=== PATIENT | female | born 1990 | race Two or more races ===

== ENCOUNTER 2020-03-03 13:45 | Outpatient (REF) | payer BC, SELFPAY ==
[2020-03-04 09:38] LABS: BV Int Neg Control Negative (Negative); BV Int Pos Control Positive (Positive)
[2020-03-07 21:52] LABS: HPV mRNA E6/E7 Not Detected (Not Detected)
== END 2020-03-03 13:46 | disposition home or self-care (01) ==
LOC: HO.LAB 13:45
PROVIDERS: Visit Provider Internal Medicine
DX: Z12.4 Encounter for screening for malignant neoplasm of cervix (principal); Z11.51 Encounter for screening for human papillomavirus (HPV)
CPT/HCPCS: 36415; 87480; 87491; 87510; 87591; 87624; 87625; 87660; 88141; 88142

== ENCOUNTER 2020-11-01 06:19 | Outpatient (REF) | payer BC, SELFPAY ==
[2020-11-01 08:38] LABS: MANUAL DIFF FLAG NO
[2020-11-01 08:51] LABS: Basophils Percent Auto 0.3 % (0-2); Eosinophils Absolute Auto 0.1 X10*3/uL (0.0-0.4); Eosinophils Percent Auto 2.3 % (0-4); Hematocrit 41.6 % (37-47); Hemoglobin 13.9 g/dl (12.0-16.0); Imm Gran Abs Auto 0.02 X10*3/uL (0.00-0.03); Imm Gran Pct Auto 0.3 % (0.0-0.4); Lymphocytes Absolute Auto 1.6 X10*3/uL (1.2-4.9); Lymphocytes Percent Auto 28.3 % (20-40); Mean Corpuscular HGB Conc 33.4 g/dl (31.0-35.0); Mean Corpuscular Volume 89.8 fL (80-98); Mean Platelet Volume 9.9 fL (9.4-12.3); Monocytes Absolute Auto 0.5 X10*3/uL (0.1-1.2); Monocytes Percent Auto 8.2 % (2-11); Neutrophils Absolute Auto 3.5 X10*3/uL (2.0-8.3); Neutrophils Percent Auto 60.6 % (45-73); Platelet Count 260 X10*3/uL (160-400); Red Blood Count 4.63 X10*6/uL (4.20-5.50); Red Cell Distribution Width 12.2 % (11.0-16.0); White Blood Count 5.8 X10*3/uL (4.8-10.8)
[2020-11-01 08:59] LABS: Alanine Aminotransferase 19 U/L (0-31); Albumin Level 4.6 g/dL (3.5-5.0); Alkaline Phosphatase 47 U/L (39-117); Anion Gap 14 (12-20); Aspartate Amino Transferase 20 U/L (5-31); Bilirubin Total 1.3 mg/dL (0.0-1.0); Blood Urea Nitrogen 15 mg/dL (9-16); Calcium 9.6 mg/dL (8.4-10.2); Carbon Dioxide 25 mmol/L (22-29); Chloride 106 mmol/L (96-108); Cholesterol 182 mg/dL; Estimated Glomerular Filt Rate > 60; Glucose Random 83 mg/dL (60-115); HDL Cholesterol 50 mg/dL; LDL Cholesterol Calculated 119 mg/dl; Sodium 140 mmol/L (135-145); Total Protein 7.5 g/dL (6.5-8.0); Triglycerides 69 mg/dL
[2020-11-01 09:26] LABS: Free T4 (Free Thyroxine) 0.94 ng/dL (0.71-1.85); Thyroid Stimulating Hormone 1.37 uIU/mL (0.32-4.0); Vitamin D 25-OH Total 24.3 ng/mL (>30)
[2020-11-01 09:34] LABS: Folate 11.3 ng/mL (> or = 4.0); Vitamin B12 854 pg/mL (200-900)
[2020-11-01 10:50] LABS: CT PCR NOT DETECTED (Not Detect.); NG PCR NOT DETECTED (Not Detect.)
== END 2020-11-01 06:20 | disposition home or self-care (01) ==
LOC: HO.LAB 06:19
PROVIDERS: PCP Internal Medicine; Visit Provider Internal Medicine
DX: Z12.4 Encounter for screening for malignant neoplasm of cervix (principal); Z11.3 Encounter for screening for infections with a predominantly sexual mode of transmission; E66.3 Overweight; G43.909 Migraine, unspecified, not intractable, without status migrainosus; E78.00 Pure hypercholesterolemia, unspecified
CPT/HCPCS: 80053; 80061; 82306; 82607; 82746; 84439; 84443; 85025; 87491; 87591

== ENCOUNTER 2023-01-23 10:01 | Outpatient (AMB) | payer BC, SELFPAY ==
[2023-01-23 10:14] VITALS: BP 118/60; PULSE 86; O2SAT 97; BMI 37.0
--- NOTE | 2023-01-23 10:14 | MHC.PC.OV ---
Vital Signs 01/23/23 10:14 Height 5 ft 5 in Weight 222 lb 4 oz BMI 37.0 BP 118/60 Blood Pressure Location Lt brachial Position Sitting Pulse 86 Pulse Source Pulse Oximeter Pulse Oximetry (%) 97 Oxygen Delivery Method Room Air Intake Visit Reasons: Asthma Heritage Consultant Required: No Accompanied by: Self / Same As Patient Allergies dog dander [DOGS] Allergy (Intermediate, Verified 01/23/23 10:15) SHORTNESS OF BREATH Medication List - Last Reconciled 01/23/23 by Filomena Hernandez MD albuterol sulfate 90 mcg/actuation 2 puffs PO Q4-6H PRN 30 days budesonide-formoterol 160-4.5 mcg/actuation (Symbicort) 2 puffs inhalation Q12H [nebulizer As directed] Tobacco use date assessed: 01/23/23 Dental Screening Dental Screen Date: 01/23/23 Did you have a dental visit in the last 12 months?: Yes Did you have a dental problem in the last 6 months where you did not have access to dental care?: No Was dental information given to patient?: Patient has dentist HPI Asthma HPI Details 32-year-old obese female with GERD and asthma last seen in June 2021 complaining of alopecia and blood work was requested. Patient is here for follow-up [facility] Medical History (Updated 04/07/21 @ 12:30 by Filomena Hernandez MD) Vaginal discharge Bacterial vaginosis Rectal discomfort Constipation Overweight (BMI 25.0-29.9) Migraine Allergic rhinitis Asthma Family History Mother Depression Sister Depression Social History Housing: Apartment Alcohol intake: current Patient Tobacco Use Status: Never used Tobacco e-Cigarette/Vaping Use: Currently Using Second Hand Smoke Exposure: No service: No Current occupational status: employed Cognitive needs: No Hearing needs: No Vision needs: No Questionnaire PHQ-9 Over the last 2 weeks, how often have you been bothered by any of the following problems? 1. Little interest or pleasure in doing things: not at all 2. Feeling down, depressed, or hopeless: not at all 3. Trouble falling or staying asleep, or sleeping too much: not at all 4. Feeling tired or having little energy: not at all 5. Poor appetite or overeating: not at all 6. Feeling bad about yourself - or that you are a failure or have let yourself or your family down: not at all 7. Trouble concentrating on things, such as reading the newspaper or watching television: not at all 8. Moving or speaking so slowly that other people could have noticed. Or the opposite - being so fidgety or restless that you have been moving around a lot more than usual: not at all 9. Thoughts that you would be better off or of hurting yourself in some way: not at all Total score: 0 41132 - PHQ-9 Billing: Yes Source: Developed by Drs. Scott Lakhani, Jesusita Smith, Pavel Randolph and colleagues, with an educational anat from [employer] Thrive Questionnaire Date Thrive assessed: 01/23/23 I am a: Patient What is your living situation today?: I have a steady place to live Within the past 12 months, did the food you bought not last and you didn't have the money to get more?: Never true Within the past 12 months, did you worry whether your food would run out before you got money to buy more?: Never true Do you have trouble paying for medicines?: No Do you have trouble getting transportation to medical appointments?: No Do you have trouble paying your heating and electricity bill?: No Do you have trouble taking care of your child, family member or friend?: No Do you have trouble with day-to-day activities such as bathing, preparing meals, shopping, managing finances, etc.?: No Are you currently unemployed and looking for a job?: No Are you interested in more education?: No Please select the resources that you would like help with: None Currently or been in a relationship where the following occur: no concerns reported AUDIT C Alcohol Use Questionnaire (AUDIT-C) 1. How often do you have a drink containing alcohol?: Monthly or less 2. How many drinks containing alcohol do you have on a typical day when you are drinking?: 3 or 4 3. How often do you have six or more drinks on one occasion?: Never Total Score: 2 TIP-7 AMB Questionnaire TIP-7 Date TIP - 7 assessed: 12/13/23 Feeling nervous, anxious, or on edge: 0 = Not at all Not being able to stop or control worryin = Not at all Worrying too much about different things: 0 = Not at all Trouble relaxin = Not at all Being so restless that it is hard to sit still: 0 = Not at all Becoming easily annoyed or irritable: 0 = Not at all Feeling afraid as if something awful might happen: 0 = Not at all Total TIP-7 score (0-4 normal; 5-9 mild; 10-14 moderate; 15-21 severe): 0 Source: Developed by Drs. Scott Lakhani, Jesusita Smith, Pavel Randolph and colleagues, with an educational anat from [employer]. TIP-7 Assessment Billing TIP-7 Assessment Tool: TIP-7 Assessment 81635 Physical exam (Primary Care) Vital Signs: Last Vital Signs Pulse 86 01/23/23 10:14 BP 118/60 01/23/23 10:14 Pulse Ox 97 01/23/23 10:14 Oxygen Delivery Method Room Air 01/23/23 10:14 BMI result Body Mass Index 37.0 Tobacco/Smoking Status: Tobacco use Status Tobacco use date assessed 01/23/23 01/23/23 10:21 Patient Tobacco Use Status Never used Tobacco 01/23/23 10:21 Tobacco use type 04/07/21 09:48 e-Cigarette/Vaping Use Currently Using 01/23/23 10:21 PHQ-9: PHQ-9 Score PHQ-9: Total score 0 01/23/23 10:48 Thrive Assessment: Date of Thrive Assessment Date Thrive assessed 01/23/23 01/23/23 10:21 Currently or been in a relationship where the following occur: no concerns reported Const General: alert; No acute distress Eyes Conjunctivae: conjunctivae normal Resp Auscultation: clear to auscultation bilaterally Cardio Rate: regular rate Rhythm: regular rhythm GI Inspection: Yes normal to inspection Extrem General: Yes normal to inspection and No edema Office Procedures Flu Questionnaire Does the patient have a severe egg allergy?: No Does the patient have severe life threatening allergies?: No Does the patient have a fever or illness today?: No Has the patient ever had Guillain-[place] Syndrome?: No Has the patient ever had any past reaction to a flu shot?: No Immunizations flu vacc [id number] 6mos up(PF) 60 mcg(15 mcgx4)/0.5 mL IM syringe Performing Provider: Filomena Hernandez MD [facility] Administered by: Jamee Fuentes CMA on 01/23/23 11:03 Dose Route Admin Location Dispensed Lot Number Expiration Date N[employer] Regulatory Leader 0.5 mL IM Left Deltoid 0.5 mL [id number] 08/11/23 48012-017-42 [employer] VIS Given Date VIS Provided VIS Publication Date 01/23/23 Single Vaccine 20 Eligibility Eligibility Date Funding Source Not [facility] Eligible 01/23/23 Private Assessment and Plan Assessment & Plan (1) Obesity (BMI 30-39.9): Code(s): E66.9 - Obesity, unspecified Plan: Diet and exercise (2) Asthma: Code(s): J45.909 - Unspecified asthma, uncomplicated Qualifiers: Asthma severity: mild Asthma persistence: intermittent Asthma complication type: uncomplicated Qualified Code(s): J45.20 - Mild intermittent asthma, uncomplicated Plan: Patient on rescue inhaler as well as controller inhaler. Orders: Orders Complete Blood Count Auto Diff Today L65.9 - Nonscarring hair loss, unspecified Comprehensive Met. Panel Today L65.9 - Nonscarring hair loss, unspecified Free T4 (Free Thyroxine) Today L65.9 - Nonscarring hair loss, unspecified Thyroid Stimulating Hormone Today L65.9 - Nonscarring hair loss, unspecified DHEA Sulfate Today L65.9 - Nonscarring hair loss, unspecified Vitamin B12 and Folate Today L65.9 - Nonscarring hair loss, unspecified Lipid Panel Today E78.00 - Pure hypercholesterolemia, unspecified, L65.9 - Nonscarring hair loss, unspecified Testosterone, Free/Total Today L65.9 - Nonscarring hair loss, unspecified Medications: Refilled budesonide-formoterol 160-4.5 mcg/actuation (Symbicort) 2 puffs inhalation Q12H 10.2 grams 11RF J45.20 - Mild intermittent asthma, uncomplicated albuterol sulfate 90 mcg/actuation 2 puffs PO Q4-6H 30 days PRN 8.5 grams 0RF for dyspnea J45.20 - Mild intermittent asthma, uncomplicated Coding Level of Care Code Est Pt Level 4 (64192) Diagnoses Obesity (BMI 30-39.9) E66.9 Mild intermittent asthma without complication J45.20 Asthma severity: mild Asthma persistence: intermittent Asthma complication type: uncomplicated Additional Codes TIP-7 Assessment Billing - TIP-7 Assessment Tool: TIP-7 Assessment [id number] ([id number])
== END 2023-01-23 11:07 | disposition home or self-care (01) ==
PROVIDERS: PCP Internal Medicine; Visit Provider Internal Medicine
DX: Z23 Encounter for immunization (principal); J45.20 Mild intermittent asthma, uncomplicated; E66.9 Obesity, unspecified; Z68.37 Body mass index [BMI] 37.0-37.9, adult
CPT/HCPCS: 90471; 90686; 99214

== ENCOUNTER 2023-06-04 11:36 | Outpatient (AMB) | payer BC, SELFPAY ==
--- NOTE | 2023-06-04 11:37 | A.OFFPC_ITS ---
Vital Signs 06/04/23 11:38 Height 5 ft 5 in Weight 101.151 kg BMI 37.1 BP 132/68 Blood Pressure Location Lt brachial Position Sitting Pulse 80 Pulse Source Pulse Oximeter Pulse Oximetry (%) 98 Oxygen Delivery Method Room Air Intake Visit Reasons: pe Allergies dog dander [DOGS] Allergy (Intermediate, Verified 06/04/23 11:38) SHORTNESS OF BREATH Medication List - Last Reconciled 06/04/23 by Filomena Hernandez MD albuterol sulfate 90 mcg/actuation 2 puffs PO Q4-6H PRN 30 days budesonide-formoterol 160-4.5 mcg/actuation (Symbicort) 2 puffs inhalation Q12H [nebulizer As directed] Tobacco use date assessed: 06/04/23 Dental Screening Dental Screen Date: 06/04/23 Did you have a dental visit in the last 12 months?: Yes Did you have a dental problem in the last 6 months where you did not have access to dental care?: No Was dental information given to patient?: Patient has dentist HPI pe HPI Details 32-year-old obese female with a history of asthma coming in for physical exam. Last seen in January 2023. tired a lot, sleepy in the afternoon, sleepy on watching tv, sleepy after a meal, feels yeast infection PFSH Medical History (Updated 06/04/23 @ 11:54 by Filomena Hernandez MD) Vaginal discharge Bacterial vaginosis Rectal discomfort Constipation Overweight (BMI 25.0-29.9) Migraine Allergic rhinitis Asthma Family History (Updated 06/04/23 @ 11:39 by Jamee Fuentes CMA) Mother Depression Sister Depression Other Mental health disorder Social History (Updated 06/04/23 @ 11:50 by Filomena Hernandez MD) Housing: Apartment Alcohol intake: current Comment: 2x a month 4 drinks at one time Patient Tobacco Use Status: Never used Tobacco e-Cigarette/Vaping Use: Currently Using Second Hand Smoke Exposure: No service: No Current occupational status: employed Cognitive needs: No Hearing needs: No Vision needs: No Questionnaire PHQ-9 Over the last 2 weeks, how often have you been bothered by any of the following problems? 1. Little interest or pleasure in doing things: not at all 2. Feeling down, depressed, or hopeless: not at all 3. Trouble falling or staying asleep, or sleeping too much: not at all 4. Feeling tired or having little energy: not at all 5. Poor appetite or overeating: not at all 6. Feeling bad about yourself - or that you are a failure or have let yourself or your family down: not at all 7. Trouble concentrating on things, such as reading the newspaper or watching television: not at all 8. Moving or speaking so slowly that other people could have noticed. Or the opposite - being so fidgety or restless that you have been moving around a lot more than usual: not at all 9. Thoughts that you would be better off or of hurting yourself in some way: not at all Total score: 0 Depression Screening Interpretation: Negative Depression Screening Done: Yes 75057 - PHQ-9 Billing: Yes Source: Developed by Drs. Scott Lakhani, Jesusita Smith, Pavel Randolph and colleagues, with an educational anat from [employer]. Thrive Questionnaire Date Thrive assessed: 06/04/23 I am a: Patient What is your living situation today?: I have a steady place to live Within the past 12 months, did the food you bought not last and you didn't have the money to get more?: Never true Within the past 12 months, did you worry whether your food would run out before you got money to buy more?: Never true Do you have trouble paying for medicines?: No Do you have trouble getting transportation to medical appointments?: No Do you have trouble paying your heating and electricity bill?: No Do you have trouble taking care of your child, family member or friend?: No Do you have trouble with day-to-day activities such as bathing, preparing meals, shopping, managing finances, etc.?: No Are you currently unemployed and looking for a job?: No Are you interested in more education?: No Please select the resources that you would like help with: None Currently or been in a relationship where the following occur: no concerns reported THRIVE Score: 0 AUDIT C Alcohol Use Questionnaire (AUDIT-C) 1. How often do you have a drink containing alcohol?: Monthly or less 2. How many drinks containing alcohol do you have on a typical day when you are drinking?: 3 or 4 3. How often do you have six or more drinks on one occasion?: Never Total Score: 2 TIP-7 AMB Questionnaire TIP-7 Date TIP - 7 assessed: 06/04/23 Feeling nervous, anxious, or on edge: 0 = Not at all Not being able to stop or control worryin = Not at all Worrying too much about different things: 0 = Not at all Trouble relaxin = Not at all Being so restless that it is hard to sit still: 0 = Not at all Becoming easily annoyed or irritable: 0 = Not at all Feeling afraid as if something awful might happen: 0 = Not at all Total TIP-7 score (0-4 normal; 5-9 mild; 10-14 moderate; 15-21 severe): 0 Source: Developed by Drs. Scott Lakhani, Jesusita Smith, Pavel Randolph and colleagues, with an educational anat from [employer]. TIP-7 Assessment Billing TIP-7 Assessment Tool: TIP-7 Assessment 84248 Review of Systems Const Denies poor appetite and Denies weakness Eyes Denies no additional complaints ENT Reports Normal hearing present, Denies dizziness, Denies nasal congestion, Denies tinnitus and Denies sore throat Card Denies chest pain, Denies syncope, Denies rapid heart rate and Denies dyspnea Resp Denies cough and Denies dyspnea GI Denies change in stool character, Reports constipation, Denies diarrhea, Denies nausea and Denies vomiting Denies urinary frequency, Denies difficulty voiding and Denies dysuria Neuro Reports Normal hearing present, Denies confusion, Denies dizziness, Denies syncope and Denies weakness Psych Denies confusion Physical exam (Primary Care) Vital Signs: Last Vital Signs Pulse 80 06/04/23 11:38 BP 132/68 06/04/23 11:38 Pulse Ox 98 06/04/23 11:38 Oxygen Delivery Method Room Air 06/04/23 11:38 BMI result Body Mass Index 37.1 Tobacco/Smoking Status: Tobacco use Status Tobacco use date assessed 06/04/23 06/04/23 11:42 Patient Tobacco Use Status Never used Tobacco 06/04/23 11:50 Tobacco use type 04/07/21 09:48 e-Cigarette/Vaping Use Currently Using 06/04/23 11:50 PHQ-9: PHQ-9 Score PHQ-9: Total score 0 06/04/23 11:42 Depression Screening Interpretation: Negative Thrive Assessment: Date of Thrive Assessment Date Thrive assessed 06/04/23 06/04/23 11:42 Currently or been in a relationship where the following occur: no concerns reported Const General: No confusion Orientation/consciousness: No confusion HENMT Head: Yes normocephalic Ears: external ears normal and TM's normal bilaterally Face and sinus: Yes normal facial exam Mouth: moist mucous membranes Throat: Yes tonsils normal Eyes Conjunctivae: conjunctivae normal Pupils: Equal, round and reactive pupils present and Pupil accommodation reflex normal Direct Ophthalmoscopy: normal light reflex Neck Neck: No lymphadenopathy Thyroid: Thyroid normal Chest Chest palpation & inspection: normal inspection of the chest Resp Effort & Inspection: normal respiratory effort and no audible wheezes Auscultation: clear to auscultation bilaterally, no crackles, no wheezes and lung sounds not diminished Cardio Rate: regular rate Rhythm: regular rhythm Peripheral pulses: radial pulses present and dorsalis pedis present GI Palpation (GI): no masses Auscultation: normal bowel sounds and normoactive bowel sounds Rectal Exam - Female: deferred Skin General skin exam: no rashes or lesions noted Rashes: no rashes Neuro General: No confusion Cranial nerves: Yes Equal, round and reactive pupils present and Yes Normal hearing present Cognition (Neuro): normal cognition Gait exam (Neuro): Normal gait present Motor exam (neuro): 5/5 motor strength present throughout Deep tendon reflexes (DTR's): Right brachioradialis reflex intensity grade: 2+, Left brachioradialis reflex intensity grade: 2+, Right patellar reflex intensity grade: 2+ and Left patellar reflex intensity grade: 2+ Extrem General: No edema Immunizations tetanus-diphtheria toxoids-Td 2 Lf unit-2 Lf unit/0.5 mL IM suspension Performing Provider: Filomena Hernandez MD Performing Location: [facility] [place] [facility] Administered by: Jamee Fuentes CMA on 06/04/23 12:05 Dose Route Admin Location Dispensed Lot Number Expiration Date N[employer] Advertising Account Representative 0.5 mL IM Left Deltoid 0.5 mL [id number] 03/23/24 [address]-3 [employer] VIS Given Date VIS Provided VIS Publication Date 06/04/23 Single Vaccine 20 Eligibility Eligibility Date Funding Source Not [facility] Eligible 06/04/23 State funds Assessment and Plan Assessment & Plan (1) Annual physical exam: Code(s): Z00.00 - Encounter for general adult medical examination without abnormal findings (2) Asthma: Code(s): J45.909 - Unspecified asthma, uncomplicated Qualifiers: Asthma complication type: uncomplicated Asthma persistence: intermittent Asthma severity: mild Qualified Code(s): J45.20 - Mild intermittent asthma, uncomplicated Plan: Continue with the albuterol and controller Symbicort. (3) Obesity (BMI 30-39.9): Code(s): E66.9 - Obesity, unspecified Plan: Diet and exercise (4) Hearing difficulty: Code(s): H91.90 - Unspecified hearing loss, unspecified ear (5) Hypersomnia: Code(s): G47.10 - Hypersomnia, unspecified (6) Yeast infection of the vagina: Code(s): B37.31 - Acute candidiasis of vulva and vagina Orders: Orders Td State Immunization Today Z23 - Encounter for immunization RT home sleep study Today G47.10 - Hypersomnia, unspecified Vitamin D 25-OH Total Today E55.9 - Vitamin D deficiency, unspecified Referrals Speech and Hearing Referral H91.90 - Unspecified hearing loss, unspecified ear Medications: New fluconazole 150 mg PO ONCE 1 day 1 tab 0RF B37.31 - Acute candidiasis of vulva and vagina tetanus-diphtheria toxoids-Td 0.5 mL IM ONCE 0.5 mL 0RF Z23 - Encounter for immunization montelukast (Singulair) 10 mg PO BEDTIME 30 tabs 3RF J45.20 - Mild intermittent asthma, uncomplicated Refilled albuterol sulfate 90 mcg/actuation 2 puffs PO Q4-6H 30 days PRN 8.5 grams 0RF for dyspnea J45.20 - Mild intermittent asthma, uncomplicated budesonide-formoterol 160-4.5 mcg/actuation (Symbicort) 2 puffs inhalation Q12H 10.2 grams 11RF J45.20 - Mild intermittent asthma, uncomplicated Coding Level of Care Code Est Pt Prev Care 18-39y(57083) Diagnoses Annual physical exam Z00.00 Mild intermittent asthma without complication J45.20 Asthma complication type: uncomplicated Asthma persistence: intermittent Asthma severity: mild Obesity (BMI 30-39.9) E66.9 Hearing difficulty H91.90 Hypersomnia G47.10 Yeast infection of the vagina B37.31 Additional Codes TIP-7 Assessment Billing - TIP-7 Assessment Tool: TIP-7 Assessment 08708 ([id number])
[2023-06-04 11:38] VITALS: BP 132/68; PULSE 80; O2SAT 98; BMI 37.1
== END 2023-06-04 12:12 | disposition home or self-care (01) ==
PROVIDERS: PCP Internal Medicine; Visit Provider Internal Medicine
DX: Z00.00 Encounter for general adult medical examination without abnormal findings (principal); E66.9 Obesity, unspecified; Z68.37 Body mass index [BMI] 37.0-37.9, adult; Z23 Encounter for immunization; J45.20 Mild intermittent asthma, uncomplicated; H91.90 Unspecified hearing loss, unspecified ear; G47.10 Hypersomnia, unspecified; B37.31 Acute candidiasis of vulva and vagina
CPT/HCPCS: 90471; 90714; 99395

== ENCOUNTER 2023-10-17 15:54 | Outpatient (AMB) | payer BC, SELFPAY ==
[2023-10-17 15:55] VITALS: BP 132/72; PULSE 87; O2SAT 98; BMI 35.1
--- NOTE | 2023-10-17 15:55 | MHC.PC.OV ---
Vital Signs 10/17/23 15:55 Height 5 ft 5 in Weight 211 lb BMI 35.1 BP 132/72 Blood Pressure Location Lt brachial Position Sitting Pulse 87 Pulse Source Pulse Oximeter Pulse Oximetry (%) 98 Oxygen Delivery Method Room Air Intake Visit Reasons: asthma Network Security Consultant Required: No Accompanied by: Self / Same As Patient Allergies dog dander [DOGS] Allergy (Intermediate, Verified 10/17/23 15:56) SHORTNESS OF BREATH Tobacco use date assessed: 06/04/23 Dental Screening Dental Screen Date: 06/04/23 HPI asthma HPI Details 32-year-old obese female(noted 12 lb weight loss) with asthma coming in for follow-up. Last seen in May for physical exam. noted vaginal discharge few weeks ago and noted foul smell, prompting consult patient has been using the albuterol inhaler as needed and is under control with the Symbicort. Has not use the Singulair but would want to take them and would want to have refills. Patient also noted hair loss and has seen the dermatology in 2021 and asking for minoxidil prescription. [facility] Medical History (Updated 10/17/23 @ 16:23 by Filomena Hernandez MD) Vaginal discharge Bacterial vaginosis Rectal discomfort Constipation Overweight (BMI 25.0-29.9) Migraine Allergic rhinitis Asthma Family History (Updated 06/04/23 @ 11:39 by Jamee Fuentes CMA) Mother Depression Sister Depression Other Mental health disorder Social History (Updated 06/04/23 @ 11:50 by Filomena Hernandez MD) Housing: Apartment Alcohol intake: current Comment: 2x a month 4 drinks at one time Patient Tobacco Use Status: Never used Tobacco Tobacco use type: Cigarette e-Cigarette/Vaping Use: Currently Using Second Hand Smoke Exposure: No service: No Current occupational status: employed Cognitive needs: No Hearing needs: No Vision needs: No Questionnaire PHQ-9 Over the last 2 weeks, how often have you been bothered by any of the following problems? 1. Little interest or pleasure in doing things: not at all 2. Feeling down, depressed, or hopeless: not at all 3. Trouble falling or staying asleep, or sleeping too much: not at all 4. Feeling tired or having little energy: not at all 5. Poor appetite or overeating: not at all 6. Feeling bad about yourself - or that you are a failure or have let yourself or your family down: not at all 7. Trouble concentrating on things, such as reading the newspaper or watching television: not at all 8. Moving or speaking so slowly that other people could have noticed. Or the opposite - being so fidgety or restless that you have been moving around a lot more than usual: not at all 9. Thoughts that you would be better off or of hurting yourself in some way: not at all Total score: 0 Depression Screening Interpretation: Negative Depression Screening Done: Yes 79701 - PHQ-9 Billing: Yes Source: Developed by Drs. Scott Lakhani, Jesusita Smith, Pavel Randolph and colleagues, with an educational anat from [employer]. Thrive Questionnaire Date Thrive assessed: 06/04/23 AUDIT C Alcohol Use Questionnaire (AUDIT-C) 1. How often do you have a drink containing alcohol?: Monthly or less 2. How many drinks containing alcohol do you have on a typical day when you are drinking?: 3 or 4 3. How often do you have six or more drinks on one occasion?: Never Total Score: 2 TIP-7 AMB Questionnaire TIP-7 Date TIP - 7 assessed: 06/04/23 Source: Developed by Drs. Scott Lakhani, Jesusita Smith, Pavel Randolph and colleagues, with an educational anat from [employer]. Physical exam (Primary Care) Vital Signs: Last Vital Signs Pulse 87 10/17/23 15:55 BP 132/72 10/17/23 15:55 Pulse Ox 98 10/17/23 15:55 Oxygen Delivery Method Room Air 10/17/23 15:55 BMI result Body Mass Index 35.1 Tobacco/Smoking Status: Tobacco use Status Tobacco use date assessed 06/04/23 10/17/23 16:00 Patient Tobacco Use Status Never used Tobacco 10/17/23 16:00 Tobacco use type Cigarette 10/17/23 16:00 e-Cigarette/Vaping Use Currently Using 10/17/23 16:00 PHQ-9: PHQ-9 Score PHQ-9: Total score 0 10/17/23 16:00 Depression Screening Interpretation: Negative Thrive Assessment: Date of Thrive Assessment Date Thrive assessed 06/04/23 10/17/23 16:00 Const General: alert; No acute distress Eyes Conjunctivae: conjunctivae normal Resp Auscultation: clear to auscultation bilaterally Cardio Rate: regular rate Rhythm: regular rhythm GI Inspection: Yes normal to inspection Extrem General: Yes normal to inspection and No edema Assessment and Plan Assessment & Plan (1) Obesity (BMI 30-39.9): Code(s): E66.9 - Obesity, unspecified Plan: Continue with Diet and exercise (2) GERD (gastroesophageal reflux disease): Code(s): K21.9 - Gastro-esophageal reflux disease without esophagitis Plan: Avoid the foods that causes that usually spicy foods, tomato products, juices, coffee, soda and foods that your sensitive to. After eating do not lie down, allow 3-4 hours before in lie down. And keep the head of bed above 30 degrees to avoid the acid from going up. (3) Asthma: Code(s): J45.909 - Unspecified asthma, uncomplicated Qualifiers: Asthma severity: mild Asthma persistence: intermittent Asthma complication type: uncomplicated Qualified Code(s): J45.20 - Mild intermittent asthma, uncomplicated Plan: Continue with albuterol, Symbicort and montelukast. Reminded about rinsing mouth after using the Symbicort. (4) Foul smelling vaginal discharge: Code(s): N89.8 - Other specified noninflammatory disorders of vagina Plan: discussed about treatment and testing advised (5) Alopecia: Code(s): L65.9 - Nonscarring hair loss, unspecified Plan: minoxidil sent Orders: Orders CT NG by PCR Today N89.8 - Other specified noninflammatory disorders of vagina Bacterial Vaginosis Panel Today N89.8 - Other specified noninflammatory disorders of vagina Medications: New metronidazole 500 mg PO BID 14 tabs 0RF N89.8 - Other specified noninflammatory disorders of vagina minoxidil 2% 1 mL topical BID 60 mL 0RF L65.9 - Nonscarring hair loss, unspecified Coding Level of Care Code Est Pt Level 4 (77945) Diagnoses Obesity (BMI 30-39.9) E66.9 GERD (gastroesophageal reflux disease) K21.9 Mild intermittent asthma without complication J45.20 Asthma severity: mild Asthma persistence: intermittent Asthma complication type: uncomplicated Foul smelling vaginal discharge N89.8 Alopecia L65.9
== END 2023-10-17 16:32 | disposition home or self-care (01) ==
PROVIDERS: PCP Internal Medicine; Visit Provider Internal Medicine
DX: J45.20 Mild intermittent asthma, uncomplicated (principal); E66.9 Obesity, unspecified; Z68.35 Body mass index [BMI] 35.0-35.9, adult; K21.9 Gastro-esophageal reflux disease without esophagitis; N89.8 Other specified noninflammatory disorders of vagina; L65.9 Nonscarring hair loss, unspecified
CPT/HCPCS: 99214

== ENCOUNTER 2024-03-02 08:43 | Outpatient (AMB) | payer BC, SELFPAY ==
--- NOTE | 2024-03-02 08:49 | A.OFFPC_ITS ---
Vital Signs 03/02/24 08:51 Height 5 ft 5 in Weight 200 lb 6 oz BMI 33.3 BP 110/58 L Blood Pressure Location Lt brachial Position Sitting Pulse 87 Pulse Source Pulse Oximeter Temp 97.8 F Temp Source Skin Pulse Oximetry (%) 98 Oxygen Delivery Method Room Air Intake Visit Reasons: lump on LT breast Intake Note: Patient is here to follow up on lump on left breast and sore feeling. Marine Propulsion Technician Required: No Development Technical Lead: Not Required per policy Accompanied by: Self / Same As Patient Allergies dog dander [DOGS] Allergy (Intermediate, Verified 03/02/24 09:12) SHORTNESS OF BREATH Medication List - Last Reconciled 03/02/24 by Brandi Rushing PA-C albuterol sulfate 90 mcg/actuation 2 puffs PO Q4-6H PRN 90 days budesonide-formoterol 160-4.5 mcg/actuation (Symbicort) 2 puffs inhalation Q12H minoxidil 2% 1 mL topical BID montelukast (Singulair) 10 mg PO BEDTIME [nebulizer As directed] Tobacco use date assessed: 03/02/24 Dental Screening Dental Screen Date: 03/02/24 Did you have a dental visit in the last 12 months?: Yes Did you have a dental problem in the last 6 months where you did not have access to dental care?: No Was dental information given to patient?: Patient has dentist [facility] Medical History Vaginal discharge Bacterial vaginosis Rectal discomfort Constipation Overweight (BMI 25.0-29.9) Migraine Allergic rhinitis Asthma Surgical History No pertinent past surgical history Family History Mother Depression Sister Depression Other Mental health disorder Social History Housing: Apartment Alcohol intake: current Alcohol intake frequency: does not drink Comment: 2x a month 4 drinks at one time Patient Tobacco Use Status: Never used Tobacco Tobacco use type: Cigarette e-Cigarette/Vaping Use: Currently Using Frequency of e-Cigarette/Vaping Use: Daily Second Hand Smoke Exposure: No service: No Current occupational status: employed Cognitive needs: No Hearing needs: No Vision needs: No Questionnaire PHQ-9 Over the last 2 weeks, how often have you been bothered by any of the following problems? 1. Little interest or pleasure in doing things: not at all 2. Feeling down, depressed, or hopeless: not at all 3. Trouble falling or staying asleep, or sleeping too much: not at all 4. Feeling tired or having little energy: not at all 5. Poor appetite or overeating: not at all 6. Feeling bad about yourself - or that you are a failure or have let yourself or your family down: not at all 7. Trouble concentrating on things, such as reading the newspaper or watching television: not at all 8. Moving or speaking so slowly that other people could have noticed. Or the opposite - being so fidgety or restless that you have been moving around a lot more than usual: not at all 9. Thoughts that you would be better off or of hurting yourself in some way: not at all Total score: 0 Depression Screening Interpretation: Negative Depression Screening Done: Yes Source: Developed by Drs. Scott Lakhani, Jesusita Smith, Pavel Randolph and colleagues, with an educational anat from [employer]. Thrive Questionnaire Date Thrive assessed: 03/02/24 I am a: Patient What is your living situation today?: I have a steady place to live Within the past 12 months, did the food you bought not last and you didn't have the money to get more?: Never true Within the past 12 months, did you worry whether your food would run out before you got money to buy more?: Never true Do you have trouble paying for medicines?: No Do you have trouble getting transportation to medical appointments?: No Do you have trouble paying your heating and electricity bill?: No Do you have trouble taking care of your child, family member or friend?: No Do you have trouble with day-to-day activities such as bathing, preparing meals, shopping, managing finances, etc.?: No Are you currently unemployed and looking for a job?: No Are you interested in more education?: No Please select the resources that you would like help with: None Currently or been in a relationship where the following occur: No concerns reported THRIVE Score: 0 AUDIT C Alcohol Use Questionnaire (AUDIT-C) 1. How often do you have a drink containing alcohol?: Monthly or less 2. How many drinks containing alcohol do you have on a typical day when you are drinking?: 3 or 4 3. How often do you have six or more drinks on one occasion?: Never Total Score: 2 TIP-7 AMB Questionnaire TIP-7 Date TIP - 7 assessed: 03/02/24 Feeling nervous, anxious, or on edge: 0 = Not at all Not being able to stop or control worryin = Not at all Worrying too much about different things: 0 = Not at all Trouble relaxin = Not at all Being so restless that it is hard to sit still: 0 = Not at all Becoming easily annoyed or irritable: 0 = Not at all Feeling afraid as if something awful might happen: 0 = Not at all Total TIP-7 score (0-4 normal; 5-9 mild; 10-14 moderate; 15-21 severe): 0 Source: Developed by Drs. Scott Lakhani, Jesusita Smith, Pavel Randolph and colleagues, with an educational anat from [employer]. Physical exam (Primary Care) Vital Signs: Last Vital Signs Temp 97.8 F 03/02/24 08:51 Pulse 87 03/02/24 08:51 BP 110/58 L 03/02/24 08:51 Pulse Ox 98 03/02/24 08:51 Oxygen Delivery Method Room Air 03/02/24 08:51 BMI result Body Mass Index 33.3 Tobacco/Smoking Status: Tobacco use Status Tobacco use date assessed 03/02/24 03/02/24 08:56 Patient Tobacco Use Status Never used Tobacco 03/02/24 08:56 Tobacco use type Cigarette 03/02/24 08:56 e-Cigarette/Vaping Use Currently Using 03/02/24 08:56 PHQ-9: PHQ-9 Score PHQ-9: Total score 0 03/02/24 09:08 Depression Screening Interpretation: Negative Thrive Assessment: Date of Thrive Assessment Date Thrive assessed 03/02/24 03/02/24 08:56 Currently or been in a relationship where the following occur: No concerns reported Office Procedures Flu Questionnaire Does the patient have a severe egg allergy?: No Does the patient have severe life threatening allergies?: No Does the patient have a fever or illness today?: No Has the patient ever had Guillain-Meridian Syndrome?: No Has the patient ever had any past reaction to a flu shot?: No Immunizations Fluarix Triv 3330-4567 (PF) 45 mcg (15 mcg x 3)/0.5 mL IM syringe Performing Provider: Brandi Rushing PA-C [facility] Administered by: Shannon Fountain LPN on 03/02/24 09:08 Dose Route Admin Location Dispensed Lot Number Expiration Date [employer] Education Associate 0.5 mL IM Right Deltoid 0.5 mL [id number] 08/10/24 38350-129-44 [employer] VIS Given Date VIS Provided VIS Publication Date 03/02/24 Single Vaccine 20 Eligibility Eligibility Date Funding Source Not [facility] Eligible 03/02/24 Private Coding Level of Care Code Est Pt Level 4 (26338) Complex EM visit Add On G2211 Diagnoses Breast lump in female N63.0 Breast pain, left N64.4 Screening for HPV (human papillomavirus) Z11.51 Mild intermittent asthma without complication J45.20 Asthma severity: mild Asthma persistence: intermittent Asthma complication type: uncomplicated Influenza vaccine administered Z23 Assessment & Plan Assessment & Plan (1) Breast lump in female: Code(s): N63.0 - Unspecified lump in unspecified breast Category: Medical Plan: Sports lump to left breast at 09:00 o'clock. Benign exam. Will order ultrasound and mammogram. Will continue to monitor. (2) Breast pain, left: Code(s): N64.4 - Mastodynia Category: Medical Plan: See above. (3) Screening for HPV (human papillomavirus): Code(s): Z11.51 - Encounter for screening for human papillomavirus (HPV) Category: Medical Plan: Patient requesting female inside tester. Will refer to inside tester for further evaluation manag ement. Will continue to monitor. (4) Asthma: Code(s): J45.909 - Unspecified asthma, uncomplicated Category: Medical Qualifiers: Asthma severity: mild Asthma persistence: intermittent Asthma complication type: uncomplicated Qualified Code(s): J45.20 - Mild intermittent asthma, uncomplicated Plan: Condition is chronic and stable. Will refill meds. (5) Influenza vaccine administered: Code(s): Z23 - Encounter for immunization Category: Medical Plan: Patient received influenza vaccine. No prior allergies. Will continue to [facility]. Plan Plan - Order breast ultrasound to evaluate the left breast mass. - Schedule a screening mammogram for comprehensive breast evaluation. - Refill albuterol inhaler, nebulizer, and acne cream. - Arrange blood tests for the lipid panel due to be performed before the next appointment. - Discuss referral to a female EXECUTIVE CYBER LEADER. Orders: Orders Influenza [id number] Immunization Today Z23 - Encounter for immunization US breast LT limited Today N64.4 - Mastodynia MM screening mammo BI Today Z12.31 - Encounter for screening mammogram for malignant neoplasm of breast Referrals EXECUTIVE CYBER LEADER Referral N63.0 - Unspecified lump in unspecified breast, Z11.51 - Encounter for screening for human papillomavirus (HPV) Medications: Refilled montelukast (Singulair) 10 mg PO BEDTIME 30 tabs 3RF J45.20 - Mild intermittent asthma, uncomplicated [nebulizer] As directed 1 ea 0RF asthma J45.20 - Mild intermittent asthma, uncomplicated minoxidil 2% 1 mL topical BID 60 mL 0RF L65.9 - Nonscarring hair loss, unspecified albuterol sulfate 90 mcg/actuation 2 puffs PO Q4-6H PRN 8.5 grams 0RF for dyspnea 90 days J45.20 - Mild intermittent asthma, uncomplicated budesonide-formoterol 160-4.5 mcg/actuation (Symbicort) 2 puffs inhalation Q12H 10.2 grams 11RF J45.20 - Mild intermittent asthma, uncomplicated Patient Instructions: Patient Instructions - Schedule the ultrasound and mammogram as instructed urgently. - Ensure to fast before taking the lipid panel blood test. - Use asthma medications as prescribed; refills will be ready at the [facility] - Follow up with an EXECUTIVE CYBER LEADER appointment for the Pap smear, preference for a female provider noted. - Monitor the breast area and report any changes or increase in symptoms. Scribe Plan - Not visible on output: History of Present Illness The patient is a 33-year-old female presenting with a complaint of a palpable lump in the left breast. She reports that the lump has been noticeable for the past two to three weeks. The lump is described as being more pronounced on certain days and consistently associated with soreness, likened to muscle soreness experienced after exertion. There is no acute pain, just a constant soreness. The patient also reports the presence of a bruise on the left breast, which she attributes to frequent palpation of the lump. She has a family history where her mother and sister undergo regular monitoring for breast lumps, but there is no confirmed history of breast cancer. In her medical history, she is known to have asthma for which she uses an albuterol inhaler and a nebulizer. The last consultation for asthma was approximately two months ago. The patient also uses a cream for acne. There is a note of missed blood work scheduled for a lipid panel which was not completed as the patient had coffee with cream and sugar earlier. Social History - Familial health monitoring: Mother and sister have regular breast monitoring. - Medical management: Regular use of albuterol inhaler and nebulizer for asthma. - Preventative health care: Due for a Pap smear since last done in 2020. Review of Systems - Dermatological: Reports consistent soreness in the left breast area. Physical Exam Appearance: Alert. Oriented X3. No acute distress. Head: Normal external exam. Normocephalic. Atraumatic. Eyes: Pupils are equal, round, and reactive to light. Extraocular movements intact. Conjunctiva and sclera normal. Eyelids normal. Ears: External auditory canal normal. Throat: Pharynx normal. Uvula midline. Moist mucous membranes. Neck: Normal inspection. Neck supple. Full range of motion. No adenopathy. Breast: Ecchymosis noted to left breast at 09:00 o'clock. No obvious lumps or lesions noted. No inversion of the nipple. Normal size of nipple. Normal breast. No adenopathy noted. No rashes. No signs of infection. No erythema, soft tissue swelling, induration, fluctuance noted. No abnormal nipple discharge. Cardiovascular: Normal heart rate and rhythm. Respiratory: No respiratory distress. Painless inspiration. Back:Full range of motion noted. Skin: Skin warm and dry. Normal skin color. Normal skin turgor. No rashes/lesions/lacerations noted. Extremities: Extremities exhibit normal range of motion. Extremities nontender. Neuro: Oriented X 3. No motor deficit. No sensory deficit. Reflexes normal. Results Plan - Order breast ultrasound to evaluate the left breast mass. - Schedule a screening mammogram for comprehensive breast evaluation. - Refill albuterol inhaler, nebulizer, and acne cream. - Arrange blood tests for the lipid panel due to be performed before the next appointment. - Discuss referral to a female EXECUTIVE CYBER LEADER. Patient was informed and verbally consented to the use of an ambient scribe for clinic note documentation during this visit. Discussion Notes I discussed the likely diagnosis of fibrocystic breast changes given the dense breast tissue palpable on examination, which is a common condition. The plan includes an urgent ultrasound and mammogram to further evaluate the left breast and differentiate fibrocystic changes from other potential breast pathologies. The importance of completing blood work, specifically the lipid panel, before the next visit was reiterated, and the patient was informed to come fasting next time for accurate results. I reviewed her asthma management, ensured her prescriptions would be refilled, and discussed considering a female EXECUTIVE CYBER LEADER for her Pap smear, given her preference. I plan to follow up with the patient once imaging results are available. Patient Instructions - Schedule the ultrasound and mammogram as instructed urgently. - Ensure to fast before taking the lipid panel blood test. - Use asthma medications as prescribed; refills will be ready at the [facility] - Follow up with an EXECUTIVE CYBER LEADER appointment for the Pap smear, preference for a female provider noted. - Monitor the breast area and report any changes or increase in symptoms.
[2024-03-02 08:51] VITALS: BP 110/58; PULSE 87; TEMP 36.6; O2SAT 98; BMI 33.3
== END 2024-03-02 09:11 | disposition home or self-care (01) ==
PROVIDERS: PCP Internal Medicine; Visit Provider Physician Assistant Medical
DX: N63.0 Unspecified lump in unspecified breast (principal); N64.4 Mastodynia; Z11.51 Encounter for screening for human papillomavirus (HPV); J45.20 Mild intermittent asthma, uncomplicated; Z23 Encounter for immunization

== ENCOUNTER → 2024-03-02 08:43 | Outpatient (BNVA) | payer BC, SELFPAY | PROVIDERS: PCP Internal Medicine; Visit Provider Physician Assistant Medical | DX: N63.25 Unspecified lump in the left breast, overlapping quadrants (principal); N64.4 Mastodynia; J45.20 Mild intermittent asthma, uncomplicated; Z23 Encounter for immunization | CPT/HCPCS: 90471; 90656; 96127 ==

== ENCOUNTER 2024-04-13 09:26 | Outpatient (REF) | payer BC, SELFPAY ==
--- NOTE | ~2024-04-13 | MM_ITS ---
EXAMINATION: MM DIAGNOSTIC DIGITAL BREAST TOMOSYNTHESIS, BILATERAL Limited left breast ultrasound. CLINICAL INFORMATION: Baseline mammogram left breast pain and palpable lump. COMPARISON: Mammography: Baseline. TECHNIQUE: Digital breast mammography with tomosynthesis is performed in both the craniocaudal and mediolateral oblique views along with computer-aided detection (CAD). FINDINGS: There are scattered areas of fibroglandular density (ACR BI-RADS breast composition Category b). Triangular marker and BB marker in the central inner left breast at site of pain and palpable lump without underlying abnormality. No suspicious masses calcifications or other abnormal findings bilateral breasts. Targeted color Doppler ultrasound scanning in the left breast areas of pain and palpable lump from 7-11 o'clock demonstrates normal fibronodular breast tissue. Results are provided to the patient at time of visit by the technologist. MM/MM tomosynthesis diagnostic BI IMPRESSION: Left: No mammographic or sonographic abnormality to account for the patient's left breast pain and palpable lump. Recommend clinical evaluation and follow-up. Right: Negative. ASSESSMENT: BI-RADS BI-RADS 1 - Negative RECOMMENDATION: 1 year F/U This patient's information was entered into a reminder system with a target due date for their next mammogram. Electronically signed by: Jaylene Dueñas DO 04/13/2024 12:05 PM HARME[facility] BUENROSTRO
--- OUTSIDE RECORDS SUMMARY | 2024-04-13 10:23 | XMS_ITS | Clinical Summary ---
Author Organization [facility] Address [address] [place] [address] Phone Care Team Providers Care Pony Rougher Name Role Phone Unavailable Primary Care Provider Unavailabl e Immunizations Immunization Administration Dates Next Due DTaP 5 05/31/1993, 1,09/10/1989,06/10,03/13/1989 HPV, Quadrivalent 09/09/2007 Hep B, ped/adol 11/15/1999,12/21/1998,11/17/1998 Hib (PRP-T) 05/11/1990 IPV 05/31/1993, 1,06/10/1989,03/13 MMR 11/17/1998,05/11/1990 Meningococcal Conj (Menactra) MCV4P 09/09/2007 Td (adult) (MBL), 2 Lf tetan us toxoid, PF, adsorbed 11/15/1999 Tdap 09/09/2007 Family History Relation Name Status Comments Father Alive Father: Alive a nd well Mother Mother: Migrain es Other Family history of Diabetes mellitus, Family history of Asthma, Family history of Elevated cholesterol, Family history of Sudden /MN under age 55 Sister 1 Alive Sister: Alive a nd well, Alive and well Sister 2 Alive Sister: Alive a nd well, Alive and well Social History Tobacco Use Types Packs/Day Years Used Date Smoking Tobacco: Never Assessed Comments Unknown Sex and Gender Information Value Date Recorded Sex Assigned at Not on file Legal Sex Female 4:26 PM EDT Gender Identity Not on file Sexual Orientation Not on file Plan of Treatment Health Maintenance Due Date Last Done Comments Varicella Vaccines (1 of 2 - 13+ 2-dose series) 2001 HPV Vaccines (2 - 3-dose series) 10/07/2007 09/09/2007 DTaP,Tdap,and Td Vaccines (7 - Td or Tdap) 09/08/2017 09/09/2007, 11/15/1999, 05/31/1993, Additional history exists Influenza Vaccines (#1) 2023 COVID-19 Vaccine (2023- season) 2023 HIB Vaccines Completed 05/11/1990 IPV Vaccines Completed 05/31/1993, 08/11, 06/10/1989, Additional history exists MMR Vaccines Completed 11/17/1998, 05/11/1990 Hepatitis B Vaccines Completed 11/15/1999, 12/21/1998, 11/17/1998 Meningococcal Vaccine Completed 09/09/2007 Hepatitis A Vaccines Aged Out No long er eligible based on patient's age to complete this topic Men B Vaccine Aged Out No longer elig ible based on patient's age to complete this topic Pneumococcal Vaccine Aged Out No long er eligible based on patient's age to complete this topic
--- OUTSIDE RECORDS SUMMARY | 2024-04-13 10:23 | XMS_ITS | Encounter Summary ---
Author Organization [facility] Address [address] [place] [address] Phone Care Team Providers Care Personal Secretary Name Role Phone Kristine Sweeney MD Primary Care Provider [phone] Encounter Details Date Type Department Care Team (Late st Contact Info) Description 09/27/2016 Conversion Encounter [facility] [place] [address] [place] [address] Social History Tobacco Use Types Packs/Day Years Used Date Smoking Tobacco: Never Assessed Comments Unknown Sex and Gender Information Value Date Recorded Sex Assigned at Not on file Legal Sex Female 4:26 PM EDT Gender Identity Not on file Sexual Orientation Not on file documented as of this encounter Plan of Treatment Not on file documented as of this encounter Visit Diagnoses Not on filedocumented in this encounter Care Teams Personal Secretary Relationship Specialty Start Date End Date Kristine Sweeney MD [address] [place] [address] PCP - General 09/21/16 05/23/22 documented as of this encounter
--- OUTSIDE RECORDS SUMMARY | 2024-04-13 10:23 | XMS_ITS | Encounter Summary ---
Author Organization [facility] Address [address] [place] [id number] Phone Care Team Providers Care Embedded Systems Designer Name Role Phone Kristine Sweeney MD Primary Care Provider [phone] Encounter Details Date Type Department Care Team (Late st Contact Info) Description 07/01/2009 Documentation EM Family Medicine [address] [place] [address] Family Medicine, Physician [address] [place], [place] [id number] Social History Tobacco Use Types Packs/Day Years [...] on filedocumented in this encounter Care Teams Embedded Systems Designer Relationship Specialty Start Date End Date Kristine Sweeney MD [address] [place] [address] [place] [address] PCP - General 09/21/16 05/23/22 documented as of this encounter
== END 2024-04-13 09:27 | disposition home or self-care (01) ==
LOC: HO.MAMMO 09:26
PROVIDERS: PCP Internal Medicine; Visit Provider Physician Assistant Medical
DX: N64.4 Mastodynia (principal)
CPT/HCPCS: 76642; 77062; 77066

== ENCOUNTER → 2024-04-13 10:00 | Outpatient (BNV) | payer BC, SELFPAY | PROVIDERS: PCP Internal Medicine; Visit Provider Internal Medicine | DX: R92.323 Mammographic fibroglandular density, bilateral breasts (principal) | CPT/HCPCS: 76642; 77062; 77066 ==

== ENCOUNTER 2024-06-08 16:04 | Outpatient (AMB) | payer BC, SELFPAY ==
--- NOTE | 2024-06-08 16:12 | MHC.PC.OV ---
Vital Signs 06/08/24 16:13 Height 5 ft 5 in Weight 198 lb BMI 32.9 BP 134/80 Blood Pressure Location Lt brachial Position Sitting Pulse 80 Pulse Source Pulse Oximeter Pulse Oximetry (%) 98 Oxygen Delivery Method Room Air Intake Visit Reasons: PE Allergies dog dander [DOGS] Allergy (Intermediate, Verified 06/08/24 16:13) SHORTNESS OF BREATH Medication List - Last Reconciled 06/08/24 by Filomena Hernandez MD albuterol sulfate 90 mcg/actuation 2 puffs PO Q4-6H PRN 90 days budesonide-formoterol 160-4.5 mcg/actuation (Symbicort) 2 puffs inhalation Q12H minoxidil 2% 1 mL topical BID montelukast (Singulair) 10 mg PO BEDTIME [nebulizer As directed] Tobacco use date assessed: 03/02/24 Dental Screening Dental Screen Date: 03/02/24 [facility] Medical History Vaginal discharge Bacterial vaginosis Rectal discomfort Constipation Overweight (BMI 25.0-29.9) Migraine Allergic rhinitis Asthma Surgical History No pertinent past surgical history Family History Mother Depression Sister Depression Other Mental health disorder Social History (Updated 06/08/24 @ 17:12 by Filomena Hernandez MD) Housing: Apartment Alcohol intake: current Alcohol intake frequency: does not drink Comment: once Q 6 months 3-4 drinks Patient Tobacco Use Status: Never used Tobacco Tobacco use type: Cigarette Years Smoked: vape e-Cigarette/Vaping Use: Currently Using Second Hand Smoke Exposure: No service: No Current occupational status: employed Cognitive needs: No Hearing needs: No Vision needs: No Questionnaire PHQ-9 Over the last 2 weeks, how often have you been bothered by any of the following problems? 1. Little interest or pleasure in doing things: nearly every day 2. Feeling down, depressed, or hopeless: not at all 3. Trouble falling or staying asleep, or sleeping too much: not at all 4. Feeling tired or having little energy: several days 5. Poor appetite or overeating: not at all 6. Feeling bad about yourself - or that you are a failure or have let yourself or your family down: not at all 7. Trouble concentrating on things, such as reading the newspaper or watching television: not at all 8. Moving or speaking so slowly that other people could have noticed. Or the opposite - being so fidgety or restless that you have been moving around a lot more than usual: not at all 9. Thoughts that you would be better off or of hurting yourself in some way: not at all Total score: 4 Depression Screening Interpretation: Positive Depression Screening Done: Yes 71559 - PHQ-9 Billing: Yes Source: Developed by Drs. Scott Lakhani, Jesusita Smith, Pavel Randolph and colleagues, with an educational anat from [employer]. Thrive Questionnaire Date Thrive assessed: 03/02/24 I am a: Patient What is your living situation today?: I have a steady place to live Within the past 12 months, did the food you bought not last and you didn't have the money to get more?: Never true Within the past 12 months, did you worry whether your food would run out before you got money to buy more?: Never true Do you have trouble paying for medicines?: No Do you have trouble getting transportation to medical appointments?: No Do you have trouble paying your heating and electricity bill?: No Do you have trouble taking care of your child, family member or friend?: No Do you have trouble with day-to-day activities such as bathing, preparing meals, shopping, managing finances, etc.?: No Are you currently unemployed and looking for a job?: No Are you interested in more education?: I choose not to answer this question Please select the resources that you would like help with: None Currently or been in a relationship where the following occur: No concerns reported THRIVE Score: 0 AUDIT C Alcohol Use Questionnaire (AUDIT-C) 1. How often do you have a drink containing alcohol?: Never Total Score: 0 TIP-7 AMB Questionnaire TIP-7 Date TIP - 7 assessed: 03/02/24 Feeling nervous, anxious, or on edge: 0 = Not at all Not being able to stop or control worryin = More than half the days Worrying too much about different things: 0 = Not at all Trouble relaxin = Not at all Being so restless that it is hard to sit still: 0 = Not at all Becoming easily annoyed or irritable: 1 = Several days Feeling afraid as if something awful might happen: 0 = Not at all Total TIP-7 score (0-4 normal; 5-9 mild; 10-14 moderate; 15-21 severe): 3 Source: Developed by Drs. Scott Lakhani, Jesusita Smith, Pavel Randolph and colleagues, with an educational anat from [employer]. TIP-7 Assessment Billing TIP-7 Assessment Tool: TIP-7 Assessment 91016 Review of Systems Const Denies poor appetite and Denies weakness Eyes Denies no additional complaints ENT Reports Normal hearing present, Denies dizziness, Denies nasal congestion, Denies tinnitus and Denies sore throat Card Denies chest pain, Denies syncope, Denies rapid heart rate and Denies dyspnea Resp Denies cough and Denies dyspnea GI Denies change in stool character, Reports constipation, Denies diarrhea, Denies nausea and Denies vomiting Denies urinary frequency, Denies difficulty voiding and Denies dysuria Neuro Reports Normal hearing present, Denies confusion, Denies dizziness, Denies syncope and Denies weakness Psych Denies confusion Physical exam (Primary Care) Vital Signs: Last Vital Signs Pulse 80 06/08/24 16:13 BP 134/80 06/08/24 16:13 Pulse Ox 98 06/08/24 16:13 Oxygen Delivery Method Room Air 06/08/24 16:13 BMI result Body Mass Index 32.9 Tobacco/Smoking Status: Tobacco use Status Tobacco use date assessed 03/02/24 06/08/24 16:13 Patient Tobacco Use Status Never used Tobacco 06/08/24 17:12 Tobacco use type Cigarette 06/08/24 17:12 e-Cigarette/Vaping Use Currently Using 06/08/24 17:12 PHQ-9: PHQ-9 Score PHQ-9: Total score 4 06/08/24 17:07 Depression Screening Interpretation: Positive Thrive Assessment: Date of Thrive Assessment Date Thrive assessed 03/02/24 06/08/24 16:13 Currently or been in a relationship where the following occur: No concerns reported Const General: No confusion Orientation/consciousness: No confusion HENMT Head: Yes normocephalic Ears: external ears normal and TM's normal bilaterally Face and sinus: Yes normal facial exam Mouth: moist mucous membranes Throat: Yes tonsils normal Eyes Conjunctivae: conjunctivae normal Pupils: Equal, round and reactive pupils present and Pupil accommodation reflex normal Direct Ophthalmoscopy: normal light reflex Neck Neck: No lymphadenopathy Thyroid: Thyroid normal Chest Chest palpation & inspection: normal inspection of the chest Resp Effort & Inspection: normal respiratory effort and no audible wheezes Auscultation: clear to auscultation bilaterally, no crackles, no wheezes and lung sounds not diminished Cardio Rate: regular rate Rhythm: regular rhythm Peripheral pulses: radial pulses present and dorsalis pedis present GI Palpation (GI): no masses Auscultation: normal bowel sounds and normoactive bowel sounds Rectal Exam - Female: deferred Skin General skin exam: no rashes or lesions noted Rashes: no rashes Neuro General: No confusion Cranial nerves: Yes Equal, round and reactive pupils present and Yes Normal hearing present Cognition (Neuro): normal cognition Gait exam (Neuro): Normal gait present Motor exam (neuro): 5/5 motor strength present throughout Deep tendon reflexes (DTR's): Right brachioradialis reflex intensity grade: 2+, Left brachioradialis reflex intensity grade: 2+, Right patellar reflex intensity grade: 2+ and Left patellar reflex intensity grade: 2+ Extrem General: No edema Coding Level of Care Code Est Pt Prev Care 18-39y(95792) Diagnoses Annual physical exam Z00.00 Obesity (BMI 30-39.9) E66.9 GERD (gastroesophageal reflux disease) K21.9 Mild intermittent asthma without complication J45.20 Asthma complication type: uncomplicated Asthma persistence: intermittent Asthma severity: mild Migraine G43.909 Additional Codes TIP-7 Assessment Billing - TIP-7 Assessment Tool: TIP-7 Assessment 66812 ([id number]) PHQ-9 - 03526 - PHQ-9 Billing: Yes ([id number]) Assessment & Plan Assessment & Plan (1) Annual physical exam: Code(s): Z00.00 - Encounter for general adult medical examination without abnormal findings Category: Medical Plan: Patient is advised to eat healthy, keep well hydrated, keep active and have adequate sleep. (2) Obesity (BMI 30-39.9): Code(s): E66.9 - Obesity, unspecified Category: Medical Plan: Diet and exercise (3) GERD (gastroesophageal reflux disease): Code(s): K21.9 - Gastro-esophageal reflux disease without esophagitis Category: Medical Plan: Avoid the foods that causes that usually spicy foods, tomato products, juices, coffee, soda and foods that your sensitive to. After eating do not lie down, allow 3-4 hours before in lie down. And keep the head of bed above 30 degrees to avoid the acid from going up. (4) Asthma: Code(s): J45.909 - Unspecified asthma, uncomplicated Category: Medical Qualifiers: Asthma complication type: uncomplicated Asthma persistence: intermittent Asthma severity: mild Qualified Code(s): J45.20 - Mild intermittent asthma, uncomplicated Plan: Patient on Singulair Symbicort and albuterol (5) Migraine: Code(s): G43.909 - Migraine, unspecified, not intractable, without status migrainosus Category: Medical Plan: Patient is advised to eat healthy, keep well hydrated, keep active and have adequate sleep. Plan History of Present Illness The patient is a 33-year-old female presenting with an annual physical examination. She has a known history of asthma, managed with Singulair, Symbicort, and Albuterol. During the conversation, it was reported that her asthma has improved over time with less frequent shortness of breath. The patient has a history of obesity, and it was noted that she has been losing weight, which is attributed to significant effort on her part. Although the patient feels she hasn't experienced significant bronchospasm, she will continue using her inhalers as needed and has been instructed on the proper use of Symbicort. Her use of Singulair seems sporadic, as it may not be immediately necessary if asthma symptoms remain controlled. Furthermore, the patient has a history of migraines and GERD. There have been no recent changes in these conditions as per the conversation. She also mentioned a history of vitamin D deficiency from previous blood work in 2020. Past medical evaluations show normal electrolytes, normal blood sugar, normal cholesterol, but low vitamin D levels. No new significant medical events, surgeries, or diagnoses have been reported since her last consultation in May 2023. She has not experienced dizziness, nausea, vomiting, fever, chest pains, or any other significant adverse symptoms since her last visit. The patient also reports normal bowel and urinary functions. Family history is negative for heart attacks or cancer. Health Maintenance - Pap smear last performed in February 2020 - Mammogram last performed in April 2024 - Previous blood work in 2020 showed normal electrolytes, normal blood sugar, normal cholesterol, and low vitamin D - Patient has a history of pneumonia and MMR vaccinations and received a booster of hepatitis B in August 2018 - COVID-19 immunization record available - Vision last checked a few months ago, glasses prescribed for seeing - Discussed weight loss, diet, and exercise as part of wellness plan Social History - Substance use: Reports daily marijuana use, advised on potential health risks associated with smoking - Alcohol consumption: Minimal, infrequent; typically only at social gatherings approximately once every six months - Tobacco use: Denies - Recreational drug use: Denies except marijuana - Employment: Starting a new job on Saturday - Physical activity: Engaged in diet and exercise regimen contributing to weight loss - Allergies: No known drug allergies Review of Systems - Respiratory: Reports improvements in shortness of breath; Denies waking up short of breath - Cardiovascular: Denies chest pain or discomfort - Gastrointestinal: Denies heartburn; Normal bowel movements - Genitourinary: Denies problems urinating, does not wake up to urinate - Neurological: Denies dizziness, passing out, or visual disturbances; Eyes were examined recently with glasses prescribed for seeing - General: Denies fever and vomiting, reports normal sleep Physical Exam General: Cooperative, healthy appearing, comfortable, no acute distress and well developed Orientation: Patient oriented x3 Limitations: No limitations Head: Normal to inspection Ears: Hearing grossly normal bilaterally Nose: Normal external nose present Face and sinus: Normal facial exam Eyes: Appearance normal, both eyes and all related structures. Patient needs glasses for seeing. Neck: Normal visual inspection and Yes full ROM Respiratory: Normal respiratory effort and able to speak in complete sentences. Clear to auscultation bilaterally Cardiovascular: Regular rate and rhythm. Normal S1 and S2 GI: Normal to inspection. Soft to palpation and nontender Skin: No rashes or lesions noted Neuro: Patient oriented x3 Extremities: Normal to inspection Results - Labs: Previous labs in 2020 showed low vitamin D; other values normal - Tests and Diagnostics: Pap smear (February 2020), Mammogram (April 2024) Plan The annual physical examination addressed asthma management, with the continuation of current inhalers and potential adjustments to Singulair use dependent on symptom control. Weight loss efforts are encouraged, supported by a dietary and exercise plan. A full blood workup will be conducted to assess vitamin and mineral levels, alongside T-spot, TB, MMR, and hepatitis B titers and TB testing based on employment requirements. Ophthalmic health will be maintained with prescribed corrective lenses. Advice was given on marijuana use, suggesting safe consumption methods, and allergy management was recommended with antihistamines. Patient was informed and verbally consented to the use of an ambient scribe for clinic note documentation during this visit. Discussion Notes During the visit, we reviewed the patient's asthma control and the current regimen of Singulair, Symbicort, and Albuterol as needed, emphasizing the importance of mouth rinsing after inhaler use. The patient's weight loss progression was noted and encouraged through ongoing diet and exercise efforts. We discussed the necessary laboratory work, inclusive of metabolic, vitamin levels, and vaccination immunity markers such as MMR and hepatitis B titers, especially in light of her upcoming employment. I advised the patient on safe alternatives to smoking marijuana using edibles due to documented respiratory and cardiovascular risks. An antihistamine treatment plan for her known allergies was proposed, with the patient consenting in line with her symptoms. Patient Instructions - Continue using prescribed inhalers and follow all directions, including mouth rinsing. - Follow a healthy diet and exercise plan to support weight management. - Undergo recommended fasting blood work including vitamin D levels, metabolic panel, and titers. - Use prescribed glasses for vision correction. - Limit smoking and consider safer marijuana consumption alternatives. - Manage seasonal allergies with [id number] antihistamines as needed. Orders: Orders Complete Blood Count Auto Diff Today K21.9 - Gastro-esophageal reflux disease without esophagitis Comprehensive Met. Panel Today K21.9 - Gastro-esophageal reflux disease without esophagitis Thyroid Stimulating Hormone Today K21.9 - Gastro-esophageal reflux disease without esophagitis Lipid Panel Today E78.00 - Pure hypercholesterolemia, unspecified, K21.9 - Gastro-esophageal reflux disease without esophagitis Vitamin D 25-OH Total Today K21.9 - Gastro-esophageal reflux disease without esophagitis UA CC w/rflx Micro + Cult Today K21.9 - Gastro-esophageal reflux disease without esophagitis, R30.0 - Dysuria Hepatitis B,C Profile Today K21.9 - Gastro-esophageal reflux disease without esophagitis, R79.89 - Other specified abnormal findings of blood chemistry Rubella IgG Antibody Today K21.9 - Gastro-esophageal reflux disease without esophagitis, Z02.0 - Encounter for examination for admission to educational institution Rubeola IgG (Measles) Today K21.9 - Gastro-esophageal reflux disease without esophagitis, Z02.0 - Encounter for examination for admission to [facility] Free T4 (Free Thyroxine) Today K21.9 - Gastro-esophageal reflux disease without esophagitis Vitamin B12 and Folate Today K21.9 - Gastro-esophageal reflux disease without esophagitis Mumps Virus IgG Antibody Today K21.9 - Gastro-esophageal reflux disease without esophagitis, Z02.0 - Encounter for examination for admission to [facility] Varicella IgG Antibody Today K21.9 - Gastro-esophageal reflux disease without esophagitis, Z02.0 - Encounter for examination for admission to [facility] T Spot TB Today K21.9 - Gastro-esophageal reflux disease without esophagitis Medications: Refilled albuterol sulfate 90 mcg/actuation 2 puffs PO Q4-6H PRN 8.5 grams 0RF for dyspnea 90 days J45.20 - Mild intermittent asthma, uncomplicated budesonide-formoterol 160-4.5 mcg/actuation (Symbicort) 2 puffs inhalation Q12H 10.2 grams 11RF J45.20 - Mild intermittent asthma, uncomplicated minoxidil 2% 1 mL topical BID 60 mL 0RF L65.9 - Nonscarring hair loss, unspecified montelukast (Singulair) 10 mg PO BEDTIME 30 tabs 3RF J45.20 - Mild intermittent asthma, uncomplicated
[2024-06-08 16:13] VITALS: BP 134/80; PULSE 80; O2SAT 98; BMI 32.9
--- OUTSIDE RECORDS SUMMARY | 2024-06-08 18:47 | XMS_ITS | Encounter Summary ---
Author Organization [facility] Address [address] [place] [id number] Phone Care Team Providers Care Personal Insurance Advisor Name Role Phone Kristine Sweeney MD Primary Care Provider [phone] Encounter Details Date Type Department Care Team (Late st Contact Info) Description 07/01/2009 Documentation EM Family Medicine [address] [place] [address] Family Medicine, Physician [address] [place], [place] [id number] Social History Tobacco Use Types Packs/Day Years [...] filedocumented in this encounter Care Teams Personal Insurance Advisor Relationship Specialty Start Date End Date Kristine Sweeney MD [address] [place] [address] [place] [address] PCP - General 09/21/16 05/23/22 documented as of this encounter
--- OUTSIDE RECORDS SUMMARY | 2024-06-08 18:47 | XMS_ITS | Clinical Summary ---
Author Organization [facility] Address [address] [place] [address] Phone Care Team Providers Care Fisher Crab Name Role Phone Unavailable Primary Care Provider [...] of Elevated cholesterol, Family history of Sudden /[place] under age 55 Sister 1 Alive Sister: [...]
--- OUTSIDE RECORDS SUMMARY | 2024-06-08 18:47 | XMS_ITS | Encounter Summary ---
Author Organization [facility] Address [address] [place] [address] Phone Care Team Providers Care Tire Spotter Name Role Phone Kristine Sweeney MD Primary Care Provider [phone] Encounter Details Date Type Department Care Team (Late st Contact Info) Description 09/27/2016 Conversion Encounter [facility] [address] [place] [address] Social History Tobacco Use Types Packs/Day Years [...] on filedocumented in this encounter Care Teams Tire Spotter Relationship Specialty Start Date End Date Kristine Sweeney MD [address] [place] [address] PCP - General 09/21/16 05/23/22 documented as of this encounter
== END 2024-06-08 17:23 | disposition home or self-care (01) ==
LOC: HO.HMCH 16:05
PROVIDERS: PCP Internal Medicine; Visit Provider Internal Medicine
DX: Z00.00 Encounter for general adult medical examination without abnormal findings (principal); E66.9 Obesity, unspecified; Z68.32 Body mass index [BMI] 32.0-32.9, adult; K21.9 Gastro-esophageal reflux disease without esophagitis; J45.20 Mild intermittent asthma, uncomplicated; G43.909 Migraine, unspecified, not intractable, without status migrainosus

== ENCOUNTER → 2024-06-08 16:04 | Outpatient (BNVA) | payer BC, SELFPAY | PROVIDERS: PCP Internal Medicine; Visit Provider Internal Medicine | DX: Z00.00 Encounter for general adult medical examination without abnormal findings (principal); E66.9 Obesity, unspecified; Z68.32 Body mass index [BMI] 32.0-32.9, adult; K21.9 Gastro-esophageal reflux disease without esophagitis; J45.20 Mild intermittent asthma, uncomplicated; G43.909 Migraine, unspecified, not intractable, without status migrainosus | CPT/HCPCS: 96127 ==

== ENCOUNTER 2025-01-21 15:02 | Outpatient (AMB) | payer BC, SELFPAY ==
--- NOTE | 2025-01-21 15:02 | A.OFFVIS_ITS ---
Vital Signs 01/21/25 15:07 Height 5 ft 5 in Weight 200 lb BMI 33.3 BP 122/72 Intake Visit Reasons: APPLICATION SUPPORT INTERN annual exam Management Liaison: Management Liaison Present (Reanna) Accompanied by: Self / Same As Patient Allergies dog dander (DOGS) Allergy (Intermediate, Verified 01/21/25 15:05) SHORTNESS OF BREATH Medication List - Last Reconciled 01/21/25 by Misti Biggs CNM albuterol sulfate 90 mcg/actuation 2 puffs PO Q4-6H PRN 90 days budesonide-formoterol 160-4.5 mcg/actuation (Symbicort) 2 puffs inhalation Q12H ketoconazole 2% topical minoxidil 2% 1 mL topical BID minoxidil mg PO montelukast (Singulair) 10 mg PO BEDTIME [nebulizer As directed] Is last menstrual period known: No Post menopausal: No Patient : No HPI HPI APPLICATION SUPPORT INTERN annual exam: Details: 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 She normally sees Dr. Hernandez, and also also [facility] a Mirena for the Alyssia, and after she had her last child 14 years ago she had an IUD placed 8 weeks at [facility]. She has not gotten a periods since she had the 1st 1 put in a except for some spotting at the time she is happy enough with the levonorgestrel IUD and does not want anymore pregnancies. She has lab work that she intends to do for Dr. Hernadez soon which she thinks is fasting, and she also has been seen internal medicine hospitalist for hair loss which was mostly around the temples plus a couple of small spots she says it has not been [place] gnosed especially but her internal medicine hospitalist did lots of tests. She tried to find them in her portal but was not able to access them neither where she able to [facility] to see exactly when the IUD was replaced. Her 2 sisters and mother have various breast lumps that are being watched but none have been told the they have cancer [facility] Medical History (Updated 01/21/25 @ 16:07 by Misti Biggs CNM) Vaginal discharge Bacterial vaginosis Rectal discomfort Constipation Overweight (BMI 25.0-29.9) Migraine Allergic rhinitis Asthma Surgical History No pertinent past surgical history Family History Mother Depression Sister Depression Other Mental health disorder Social History Housing: Apartment Alcohol intake: current Alcohol intake frequency: does not drink Comment: once Q 6 months 3-4 drinks Patient Tobacco Use Status: Never used Tobacco Tobacco use type: Cigarette Years Smoked: vape e-Cigarette/Vaping Use: Currently Using Second Hand Smoke Exposure: No Patient : No service: No Current occupational status: employed Cognitive needs: No Hearing needs: No Vision needs: No Female Reproductive History Menstrual Age of Menarche: 11 control method: progestin IUCD (Liletta) Total pregnancies: 3 Full term: 2 Ab spontaneous: 1 History of abnormal pap smear: No Physical Exam Vital Signs: Last Vital Signs BP 122/72 01/21/25 15:07 BMI result Body Mass Index 33.3 Const General: healthy appearing, comfortable, no acute distress, well developed and alert Nutritional Appearance: average body habitus Orientation/consciousness: patient oriented x3 Limitations: no limitations HEENT Head: Yes normocephalic Neck Neck: Yes normal visual inspection Chest Chest palpation & inspection: normal inspection of the chest Breast/axilla inspection: normal inspection of the breasts and normal inspection of the axillae Breast/axilla palpation: normal palpation of the breasts and normal palpation of the axillae Resp Effort & Inspection: normal respiratory effort GI Inspection: Yes normal to inspection, No Abdominal wall edema and No distended Palpation (GI): Soft to palpation and nontender Other: External exam within normal limits vagina is pink and moist very normal appearing whitish mucousy discharge at cervical os with blue Liletta strings easily visible extending about 2 to 2-1/2 cm in length. Cervix is long close thick mobile nontender uterus midposition mobile nontender adnexa nonenlarged nontender good muscle tone with Kegel. General: Yes bladder normal to palpation External Female Exam: normal external appearance and normal appearance of the urethra Speculum Exam - Vagina: normal appearance of the vagina, normal palpation and normal vaginal discharge Speculum Exam - Cervix: normal appearance of the cervix, normal palpation and nontender Bimanual exam- vagina & uterus: normal bimanual exam, normal palpation, uterine size normal, bladder normal to palpation, consistency normal, normal palpation, uterine mobility normal, uterine shape normal, No Cervical tenderness present, non-tender and no cervical motion tenderness Bimanual Exam- Adnexa, other: normal adnexae, no masses, normal and No adnexal tenderness Neuro General: patient oriented x3 Assessment & Plan Assessment & Plan (1) Encounter for screening examination for sexually transmitted disease: Code(s): Z11.3 - Encounter for screening for infections with a predominantly sexual mode of transmission Category: Medical (2) Screening for malignant neoplasm of cervix: Comment: Pap smear in 2020 was negative with negative HPV next Pap in 2025. Code(s): Z12.4 - Encounter for screening for malignant neoplasm of cervix Category: Medical (3) Presence of 52 mg levonorgestrel-releasing intrauterine device (IUD): Comment: Patient [facility] 9 [facility] patient will verify and schedule replacement here... Code(s): Z97.5 - Presence of (intrauterine) contraceptive device Category: Social Hx (4) Vaginal discharge: Code(s): N89.8 - Other specified noninflammatory disorders of vagina Category: Medical (5) Well woman exam with routine gynecological exam: Code(s): Z01.419 - Encounter for gynecological examination (general) (routine) without abnormal findings Category: Medical (6) Breast cancer screening: Code(s): Z12.39 - Encounter for other screening for malignant neoplasm of breast Category: Medical Plan -----Discussed in this visit the following: healthy balanced diet, regular and consistent exercise, getting recommended health screens, doing the best she can for her particular health concerns, kegel exercises, pap smear screening and followup recommendations, mammography screening and SBE, normal changes in cycles in her life stage--- . Her Pap smear would be due next year. Discussed the question of when the IUD was last placed she is going to check her records if she is able to and see if she can find out and if it is close to the 8 years or certainly if it has gone beyond that it should be replaced and we can do that here she does not get periods in any way shape or form so we would not be able to wait for that. She did not find the replacement all that u ncomfortable several years ago. Discussed her alopecia as well she has had several labs done by her internal medicine hospitalist and is currently trialing the minoxidil p.o. as the solution was rather greasy. Discussed the vaginal discharge that is sometimes is accompanied by itching discussed that often times getting sweaty wearing scrubs can contribute to some symptoms but if they are easily resolved by showering and changing into cotton clothing then that is an easy fix we will await test results to see if there is anything to treat and discussed the BV and yeast do not necessarily have to be treated and patient can make her choice if the does show up. Orders: Orders CT NG by PCR Vag/Cerv Today B37.31 - Acute candidiasis of vulva and vagina, N89.8 - Other specified noninflammatory disorders of vagina Bacterial Vaginosis Panel Today B37.31 - Acute candidiasis of vulva and vagina, N89.8 - Other specified noninflammatory disorders of vagina Coding Level of Care Code New Pt Prev Care 18-39yr(54505 Diagnoses Encounter for screening examination for sexually transmitted disease Z11.3 Screening for malignant neoplasm of cervix Z12.4 Presence of 52 mg levonorgestrel-releasing intrauterine device (IUD) Z97.5 Vaginal discharge N89.8 Well woman exam with routine gynecological exam Z01.419 Breast cancer screening Z12.39
[2025-01-21 15:07] VITALS: BP 122/72; BMI 33.3
--- OUTSIDE RECORDS SUMMARY | 2025-01-21 22:34 | XMS_ITS | Clinical Summary ---
Author Organization [facility] Address [address] [place] [address] Phone Care Team Providers Care Engagement Engineer Name Role Phone Unavailable Primary Care Provider [...] of Elevated cholesterol, Family history of Sudden /[place] under age 55 Sister 1 Alive Sister: [...] 05/31/1993, Additional history exists Influenza Vaccines (#1) 2024 COVID-19 Vaccine (2024- season) 2024 HIB Vaccines Completed 05/11/1990 IPV Vaccines Completed [...]
--- OUTSIDE RECORDS SUMMARY | 2025-01-21 22:34 | XMS_ITS | Encounter Summary ---
Author Organization [facility] Address [address] [place] [address] Phone Care Team Providers Care Shift Boss Name Role Phone Kristine Sweeney MD Primary Care Provider [phone] Encounter Details Date Type Department Care Team (Late st Contact Info) Description 09/27/2016 Conversion Encounter [facility] [place] [address] [place] [address] Social History Tobacco Use Types Packs/Day Years [...] on filedocumented in this encounter Care Teams Shift Boss Relationship Specialty Start Date End Date Kristine Sweeney MD [address] [place] [address] PCP - General 09/21/16 05/23/22 documented as of this encounter
--- OUTSIDE RECORDS SUMMARY | 2025-01-21 22:34 | XMS_ITS | Patient Health Record ---
Author Organization [employer] [facility] A Address [address] [place] [phone] Care Team Providers Care Rerecording Mixer Name Role Phone Bhanu Mac Unavailable [phone] Reason For Referral No Information Medications Medication SIG (Take, Route, Frequency, Duration) Notes Start Date End Date Status Mirena Active ProAir HFA 108 (90 Base) MCG/ACT 2 puffs as needed Inhalation every 6 hrs; Duration: 30 days 02/23/2018 Active Social History Tobacco Use: Social History Observation Description Date Details (start date - stop date) Never Smoker NA - NA Tobacco Use/Smoking Question Answer Notes Are you a nonsmoker Sexual History Question Answer Notes Last menstrual period mirena Problems Problem Type SNOMED Code ICD Code Onset Dates Problem Status W/U Status Risk Notes Problem Asthma (902200083) Other asthma (J45.998) Active confirmed Plan Of Treatment Pending Test Test Name Order Date NEBULIZER/MDI TREATMENT 02/23/2018 Medications Administered Medication Instructions Date of Administration Dosage Notes Solumedrol (Methylpred.) up to125 mg. 02/23/2018 125 mL Medical (General) History Medical History History ICD Code allergies Surgical History Surgery Date(Month/Year)
--- OUTSIDE RECORDS SUMMARY | 2025-01-21 22:34 | XMS_ITS | Encounter Summary ---
Author Organization [facility] Address [address] [place] [address] Phone Care Team Providers Care Back Sizer Name Role Phone Kristine Sweeney MD Primary Care Provider [phone] Encounter Details Date Type Department Care Team (Late st Contact Info) Description 07/01/2009 Documentation EM Family Medicine [address] [place] [address] Family Medicine, Physician [address] [place], [place] [phone] Social History Tobacco Use Types Packs/Day Years [...] on filedocumented in this encounter Care Teams Back Sizer Relationship Specialty Start Date End Date Kristine Sweeney MD [address] [place] [address] [place] [address] PCP - General 09/21/16 05/23/22 documented as of this encounter
== END 2025-01-21 15:52 | disposition home or self-care (01) ==
LOC: HO.HWSM 15:02
PROVIDERS: PCP Internal Medicine; Visit Provider Advanced Practice Midwife
DX: Z01.419 Encounter for gynecological examination (general) (routine) without abnormal findings (principal); N89.8 Other specified noninflammatory disorders of vagina; Z11.3 Encounter for screening for infections with a predominantly sexual mode of transmission; Z97.5 Presence of (intrauterine) contraceptive device; Z12.39 Encounter for other screening for malignant neoplasm of breast
CPT/HCPCS: 99385; 99459

== ENCOUNTER 2025-01-22 12:10 | Outpatient (REF) | payer BC, SELFPAY ==
[2025-01-22 13:43] LABS: Bacterial Vaginosis PCR POSITIVE (Negative); Candida Group PCR NOT DETECTED (Not Detect); Candida glab krusei PCR NOT DETECTED (Not Detect); Trichomonas vaginalis PCR NOT DETECTED (Not Detect)
[2025-01-22 14:14] LABS: CT PCR NOT DETECTED (Not Detect.); NG PCR NOT DETECTED (Not Detect.)
--- OUTSIDE RECORDS SUMMARY | 2025-01-22 17:29 | XMS_ITS | Encounter Summary ---
Author Organization [facility] Address [address] [place] [address] Phone Care Team Providers Care Story Teller Name Role Phone Kristine Sweeney MD Primary Care Provider [phone] Encounter Details Date Type Department Care Team (Late st Contact Info) Description 07/01/2009 Documentation EM Family Medicine [address] [place] [address] Family Medicine, Physician [address] [place], [place] [phone] Social History Tobacco Use Types Packs/Day Years [...] on filedocumented in this encounter Care Teams Story Teller Relationship Specialty Start Date End Date Kristine Sweeney MD [address] [place] [address] [place] [address] PCP - General 09/21/16 05/23/22 documented as of this encounter
--- OUTSIDE RECORDS SUMMARY | 2025-01-22 17:29 | XMS_ITS | Patient Health Record ---
Author Organization [employer] [facility] A Address [address] [place] [phone] Care Team Providers Care Oil Prospecting Observer Name Role Phone Bhanu Mac Unavailable [phone] Reason For Referral No Information Medications Medication [...] Status W/U Status Risk Notes Problem Asthma (898776539) Other asthma (J45.998) Active confirmed Plan Of Treatment Pending Test Test Name Order Date NEBULIZER/MDI TREATMENT 02/23/2018 Medications Administered Medication Instructions Date of Administration Dosage Notes Solumedrol (Methylpred.) up to125 mg. 02/23/2018 125 mL Medical (General) History Medical History History ICD Code allergies Surgical History Surgery Date(Month/Year)
--- OUTSIDE RECORDS SUMMARY | 2025-01-22 17:29 | XMS_ITS | Encounter Summary ---
Author Organization [facility] Address [address] [place] [address] Phone Care Team Providers Care Sizer Machine Name Role Phone Kristine Sweeney MD Primary Care Provider [phone] Encounter Details Date Type Department Care Team (Late st Contact Info) Description 09/27/2016 Conversion Encounter [facility] [place] [address] [place] [address] Social History Tobacco Use Types Packs/Day Years [...] on filedocumented in this encounter Care Teams Sizer Machine Relationship Specialty Start Date End Date Kristine Sweeney MD [address] [place] [address] PCP - General 09/21/16 05/23/22 documented as of this encounter
--- OUTSIDE RECORDS SUMMARY | 2025-01-22 17:29 | XMS_ITS | Clinical Summary ---
Author Organization [facility] Address [address] [place] [address] Phone Care Team Providers Care Financial Aid Name Role Phone Unavailable Primary Care Provider [...] of Elevated cholesterol, Family history of Sudden /[place] under age 55 Sister 1 Alive Sister: [...]
== END 2025-01-22 12:11 | disposition home or self-care (01) ==
LOC: HO.LNP 12:10
PROVIDERS: Visit Provider Advanced Practice Midwife
DX: Z20.2 Contact with and (suspected) exposure to infections with a predominantly sexual mode of transmission (principal); N89.8 Other specified noninflammatory disorders of vagina; B37.31 Acute candidiasis of vulva and vagina
CPT/HCPCS: 81515; 87491; 87591